=== PATIENT | female | born 1945 | race Caucasian/White ===

== ENCOUNTER → 2016-12-12 | Outpatient (CLI) | payer MEDICARE, OTHER ==
--- NOTE | 2016-12-12 12:54 | REPMRS ---
Patient History The patient states she had a clinical breast exam in 12/2016. Patient is postmenopausal. Family history of breast cancer in sister at age 61 and breast cancer in 2 maternal aunts at age 50 or over. Benign stereotactic core biopsy of both breasts, February 20, 2007. Taking unspecified hormones for 6 months. Digital Woman Screen Mammo: December 12, 2016 - Exam #: [id number] Bilateral CC and MLO view(s) were taken. Technologist: Camille Byrne, Technologist Prior study comparison: October 20, 2015, digital woman screen mammo performed at [facility]. September 30, 2014, digital woman screen mammo performed at [facility]. September 30, 2013, digital woman screen mammo performed at [facility]. FINDINGS: There are scattered fibroglandular densities. There is a needle biopsy marker clip in the left breast. There has been no change in the appearance of the mammogram from the prior studies. There is a mild amount of scattered fibroglandular density which is fairly symmetric. There is no interval development of dominant mass, architectural distortion, or clustered microcalcification suggestive of malignancy. ASSESSMENT: BI-RADS/ACR category 1 mammogram. Negative. Recommendation Routine screening mammogram in 1 year (for women over age 40). This mammogram was interpreted with the aid of an FDA-approved computer-aided dectection system. Electronically Signed By: Seven Hallman MD 12/12/16 [id number]
== END ==
LOC: M WHC 09:47
PROVIDERS: ATTEND Nurse Practitioner Family
DX: Z01.419 Encounter for gynecological examination (general) (routine) without abnormal findings (principal); Z12.31 Encounter for screening mammogram for malignant neoplasm of breast; Z78.0 Asymptomatic menopausal state; Z12.12 Encounter for screening for malignant neoplasm of rectum; Z80.3 Family history of malignant neoplasm of breast; Z92.89 Personal history of other medical treatment; Z92.29 Personal history of other drug therapy
CPT/HCPCS: 82270; G0101; G0202; G0463

== ENCOUNTER → 2018-03-05 | Outpatient (CLI) | payer MEDICARE, OTHER ==
--- NOTE | 2018-03-05 12:13 | REPMRS ---
Patient History The patient states she had a clinical breast exam in 02/2018. Patient is postmenopausal. Family history of breast cancer at age 61 in sister, breast cancer at age 50 or over in maternal aunt, breast cancer at age 50 or over in maternal aunt. Benign stereotactic core biopsy of both breasts, February 20, 2007. Taking unspecified hormones for 2 years. 3D TOMOSYNTHESIS WAS PERFORMED. Digital Woman Screen Mammo: March 05, 2018 - Exam #: [id number] Bilateral CC and MLO view(s) were taken. Technologist: Camille Byrne, Technologist Prior study comparison: December 12, 2016, digital woman screen mammo performed at [facility]. October 20, 2015, digital woman screen mammo performed at [facility]. FINDINGS: The breast tissue is heterogeneously dense. This may lower the sensitivity of mammography. There has been no change in the appearance of the mammogram from the prior studies. There is a moderate amount of residual fibroglandular tissue which is fairly symmetric. There is no interval development of dominant mass, areas of architectural distortion, or clustered microcalcification typical of malignancy. Assessment: BI-RADS/ACR category 1 mammogram. Negative Mammogram. Recommendation Routine screening mammogram in 1 year (for women over age 40). This mammogram was interpreted with the aid of an FDA-approved computer-aided dectection system. Electronically Signed By: Eze Harkins MD 03/05/18 [id number]
== END ==
LOC: M WHC 10:38
PROVIDERS: ATTEND Nurse Practitioner Family
DX: Z12.31 Encounter for screening mammogram for malignant neoplasm of breast (principal); Z78.0 Asymptomatic menopausal state; Z92.29 Personal history of other drug therapy; Z80.3 Family history of malignant neoplasm of breast; Z86.018 Personal history of other benign neoplasm
CPT/HCPCS: 77063; 77067; 82270; G0101

== ENCOUNTER → 2019-06-24 | Outpatient (CLI) | payer MEDICARE, OTHER ==
--- NOTE | 2019-06-24 13:09 | REPMRS ---
Patient History The patient states she had a clinical breast exam in June 2019. Family history of breast cancer at age 61 in sister, breast cancer at age 50 or over in maternal aunt, breast cancer at age 50 or over in maternal aunt. Benign stereotactic core biopsy of both breasts, February 20, 2007. Taking unspecified hormones for 2 years. 3D TOMOSYNTHESIS WAS PERFORMED. [facility] lifetime risk for breast cancer is 6.5%. VOLPARA BREAST DENSITY B. Digital Woman Screen Mammo: June 24, 2019 - Exam #: [id number] Bilateral CC and MLO view(s) were taken. Technologist: Kailee Rodriguez, Technologist Prior study comparison: March 05, 2018, bilateral digital woman screen mammo performed at [facility]. December 12, 2016, digital woman screen mammo performed at [facility]. FINDINGS: The breast tissue is heterogeneously dense. This may lower the sensitivity of mammography. There has been no change in the appearance of the mammogram from the prior studies. There is a moderate amount of residual fibroglandular tissue which is fairly symmetric. There is no interval development of dominant mass, areas of architectural distortion, or clustered microcalcification typical of malignancy. Assessment: BI-RADS/ACR category 1 mammogram. Negative Mammogram. Recommendation Routine screening mammogram in 1 year (for women over age 40). This mammogram was interpreted with the aid of an FDA-approved computer-aided dectection system. Electronically Signed By: Eze Harkins MD 06/24/19 2025
== END ==
LOC: M WHC 10:36
PROVIDERS: ATTEND Nurse Practitioner Family
DX: Z12.31 Encounter for screening mammogram for malignant neoplasm of breast (principal); Z80.3 Family history of malignant neoplasm of breast; Z86.018 Personal history of other benign neoplasm; Z92.29 Personal history of other drug therapy

== ENCOUNTER → 2020-06-23 | Outpatient (CLI) | payer MEDICARE, OTHER ==
--- NOTE | 2020-06-23 12:37 | REPMRS ---
Patient History The patient states she had a clinical breast exam in June 23, 2020. Patient is postmenopausal. Family history of breast cancer at age 61 in sister, breast cancer at age 50 or over in maternal aunt, breast cancer at age 50 or over in maternal aunt. Benign stereotactic core biopsy of both breasts, February 20, 2007. Took unspecified hormones for 2 years. Tomosynthesis is performed. Volpara breast density is b. [facility] lifetime risk of breast cancer 5.9%. Patient states no breast complaints today. Patient has signed MRS History Sheet. Digital Woman Screen Mammo: June 23, 2020 - Exam #: [id number] Bilateral CC and MLO view(s) were taken. Technologist: RT Jose Prior study comparison: June 24, 2019, bilateral digital woman screen mammo performed at [facility]. March 05, 2018, bilateral digital woman screen mammo performed at [facility]. FINDINGS: There are scattered fibroglandular densities. There has been no change in the appearance of the mammogram from the prior studies. There is a mild amount of residual fibroglandular tissue which is fairly symmetric. There is no interval development of dominant mass, architectural distortion, or clustered microcalcification suggestive of malignancy. Assessment: BI-RADS/ACR category 1 mammogram. Negative Mammogram. Recommendation Routine screening mammogram in 1 year (for women over age 40). This mammogram was interpreted with the aid of an FDA-approved computer-aided dectection system. Electronically Signed By: Eze Harkins MD 06/23/20 1217
== END ==
LOC: M WHC 10:41
PROVIDERS: ATTEND Nurse Practitioner Women's Health
DX: Z01.419 Encounter for gynecological examination (general) (routine) without abnormal findings (principal); Z12.31 Encounter for screening mammogram for malignant neoplasm of breast; Z78.0 Asymptomatic menopausal state; Z80.3 Family history of malignant neoplasm of breast; Z86.018 Personal history of other benign neoplasm; Z92.29 Personal history of other drug therapy
CPT/HCPCS: 77063; 77067; G0101

== ENCOUNTER → 2021-11-09 | Outpatient (CLI) | payer MEDICARE, OTHER | LOC: M WHC 13:58 | PROVIDERS: ATTEND Advanced Practice Midwife | DX: Z12.31 Encounter for screening mammogram for malignant neoplasm of breast (principal) ==

== ENCOUNTER → 2021-12-07 | Outpatient (CLI) | payer MEDICARE, OTHER | LOC: M WHC 13:34 | PROVIDERS: ATTEND Advanced Practice Midwife | DX: R92.8 Other abnormal and inconclusive findings on diagnostic imaging of breast (principal) | CPT/HCPCS: 77065; G0279 ==

== ENCOUNTER → 2022-05-17 | Outpatient (CLI) | payer MEDICARE, OTHER | LOC: M WHC 10:30 | PROVIDERS: ATTEND Advanced Practice Midwife | DX: R92.1 Mammographic calcification found on diagnostic imaging of breast (principal) | CPT/HCPCS: 77065; G0279 ==

== ENCOUNTER → 2023-06-06 | Outpatient (CLI) | payer MEDICARE, OTHER | LOC: M WHC 11:00 | PROVIDERS: ATTEND Advanced Practice Midwife | DX: Z12.31 Encounter for screening mammogram for malignant neoplasm of breast (principal) ==

== ENCOUNTER → 2024-06-18 | Outpatient (CLI) | payer MEDICARE, OTHER | LOC: M WHC 10:17 | PROVIDERS: ATTEND Advanced Practice Midwife | DX: Z12.31 Encounter for screening mammogram for malignant neoplasm of breast (principal); R92.2 Inconclusive mammogram; R92.323 Mammographic fibroglandular density, bilateral breasts ==

== ENCOUNTER → 2024-06-24 | Outpatient (CLI) | payer MEDICARE, OTHER | LOC: M WHC 10:31 | PROVIDERS: ATTEND Advanced Practice Midwife | DX: Z12.31 Encounter for screening mammogram for malignant neoplasm of breast (principal); N64.9 Disorder of breast, unspecified ==

== ENCOUNTER → 2024-08-20 | Outpatient (CLI) | payer MEDICARE, OTHER ==
[~2024-08-20] MED LIST: ASPI325T57 PO; BISO10TA13 PO; D3-5CAP PO; EXCETAB32 PO; EZET10TA21 PO
[2024-08-20 09:09] VITALS: TEMP 98.5
[2024-08-20 09:48] VITALS: BP 144/78; O2SAT 99
== END ==
LOC: M WHCPRO 08:57
PROVIDERS: ATTEND Surgery
DX: C50.112 Malignant neoplasm of central portion of left female breast (principal)
CPT/HCPCS: 19285; 77065; A4648

== ENCOUNTER 2024-08-28 09:17 | Day surgery (SDC) | payer MEDICARE, OTHER ==
[~2024-08-28] VITALS: Ht 160 cm; Wt 55.9 kg
[2024-08-28] MEDS: LR 1,000 ML IV SCH (09:45)
[2024-08-28] MEDS: ceFAZolin SOD 2 GM IV ONCE IV ONE (12:01)
[2024-08-28] MEDS ORDERED: ACETAMINOPHEN 1000MG/100ML IV BAG As Ordered ONE (12:47)
[2024-08-28] MEDS ORDERED: ONDANSETRON 4MG 2ML VIAL IV PRN (13:40)
[2024-08-28 14:07] VITALS: TEMP 96.8
[2024-08-28 14:36] VITALS: BP 148/76
[2024-08-28 14:42] VITALS: O2SAT 96
== END 2024-08-28 15:18 | disposition home or self-care (01) ==
LOC: M SDC 09:17 → EDSTATUS 13:30 → M SDC 15:18
PROVIDERS: ATTEND Surgery
DX: C50.112 Malignant neoplasm of central portion of left female breast (principal); Z17.0 Estrogen receptor positive status [ER+]; I10 Essential (primary) hypertension; E78.00 Pure hypercholesterolemia, unspecified; Z79.899 Other long term (current) drug therapy; Z79.82 Long term (current) use of aspirin
CPT/HCPCS: 19301; 88305; 88307; J0131; J0690; J3010

== ENCOUNTER → 2024-11-10 | Outpatient (CLI) | payer MEDICARE, OTHER ==
[~2024-11-10] MED LIST changes: +ANAS1TAB2 PO; +ASPI-1 PO; +CALC1TAB42 PO; +ERGO500029; -EZET10TA21 PO; +EZET10TA57 PO
== END ==
LOC: M ONCR 09:58
PROVIDERS: ATTEND General Practice
DX: C50.412 Malignant neoplasm of upper-outer quadrant of left female breast (principal); Z79.810 Long term (current) use of selective estrogen receptor modulators (SERMs); Z79.82 Long term (current) use of aspirin; Z79.899 Other long term (current) drug therapy; Z17.0 Estrogen receptor positive status [ER+]; Z17.22 Progesterone receptor negative status; Z17.32 Human epidermal growth factor receptor 2 negative status; Z80.3 Family history of malignant neoplasm of breast; Z98.890 Other specified postprocedural states

== ENCOUNTER → 2024-12-05 | Outpatient (RCR) | payer MEDICARE, OTHER | LOC: M ONCR 11-18 10:59 | PROVIDERS: ATTEND General Practice | DX: Z51.0 Encounter for antineoplastic radiation therapy (principal); C50.412 Malignant neoplasm of upper-outer quadrant of left female breast ==

== ENCOUNTER 2024-12-10 10:48 | Outpatient (RCR) | payer MEDICARE, OTHER | END 2025-01-04 | LOC: M ONCR 10:48 | PROVIDERS: ATTEND General Practice | DX: Z51.0 Encounter for antineoplastic radiation therapy (principal); C50.412 Malignant neoplasm of upper-outer quadrant of left female breast ==